=== PATIENT | female | born 1960 | race Caucasian/White ===

== ENCOUNTER 2016-05-12 08:50 | Outpatient (CLI) | payer OTHER ==
--- NOTE | 2016-05-14 13:13 | DIAGNOSTIC IMAGING REPORT ---
PROCEDURE: MG BILATERAL SCREENING W/CAD INDICATION: SCREENING. Mother with a history of breast cancer. TECHNIQUE: Bilateral CC and MLO digital views. COMPARISON: Left mammogram and breast ultrasound 12/09/2009 and bilateral mammogram 11/25/2009. FINDINGS: Computer-aided detection applied. Mildly dense. Stable 8 mm left upper outer quadrant cyst. No change. IMPRESSION: 1. No mammographic evidence of malignancy 2. Stable 8 mm left upper outer quadrant cyst. RESULT CODE: 2- Benign finding(s). A. A negative report should not delay biopsy if a dominant or clinically suspicious mass is present. 10-15% of cancers are not identified by x-ray. B. A negative report may reinforce clinical impression. C. Adenosis and dense breasts may obscure an underlying neoplasm. D. False positive reports average 6-10%. E.. A yearly screening mammogram is recommended. A reminder letter will be scheduled.
== END 2016-05-12 23:00 ==
LOC: MAM SRH 08:50
DX: Z12.31 Encounter for screening mammogram for malignant neoplasm of breast (principal); Z80.3 Family history of malignant neoplasm of breast